=== PATIENT | male | born 1955 | race Caucasian/White ===

== ENCOUNTER 2020-08-21 08:00 | Outpatient (RCR) | payer MEDICARE, SELFPAY | END 2020-08-21 08:51 | disposition other institution (70) | LOC: HO.PT 08:00 | PROVIDERS: PCP Registered Nurse; Visit Provider Physician Assistant | DX: M25.551 Pain in right hip (principal) | CPT/HCPCS: 97110; 97112; 97140; 97161; 97530 ==

== ENCOUNTER 2023-04-20 12:52 | Emergency (ER) | payer MEDICARE, SELFPAY ==
[2023-04-20] VITALS (8 sets, daily range): BP systolic 79–128; BP diastolic 40–94; PULSE 63–122; RESP 16–18; TEMP 36.4–36.8; O2SAT 97–99; BMI 24.4
--- NOTE | ~2023-04-20 | XR_ITS ---
EXAMINATION: XR CHEST CLINICAL INFORMATION: Chest pain. COMPARISON: 11/02/2011 TECHNIQUE: 2 views of the chest were obtained. FINDINGS: The lungs are well expanded. No focal consolidation. No pleural effusion. Cardiac enlargement is unchanged. 5 cm surgical hyperdensity projects over the left cardiac shadow. Multiple old right-sided rib fractures. XR/XR chest 2V IMPRESSION: No acute abnormality.
--- NOTE | 2023-04-20 12:54 | ECG_ITS ---
Test Reason : afib Blood Pressure : / mmHG Vent. Rate : 113 BPM Atrial Rate : 113 BPM P-R Int : 136 ms QRS Dur : 124 ms QT Int : 350 ms P-R-T Axes : 108 -85 -28 degrees QTc Int : 480 ms Atrial tachycardia / Atrial flutter with 2:1 A-V conduction Right bundle branch block Left anterior fascicular block Bifascicular block Abnormal ECG When compared with ECG of 02-NOV-2011 15:05, Atrial tachycardia /atrial flutter has replaced NSR Vent. rate has increased BY 64 BPM (RBBB and left anterior fascicular block) is now Present Referred By: Estefany Fisher Electronically Signed By:MARLA ZARATE MD
--- NOTE | 2023-04-20 13:15 | ED.GENADULT ---
HPI - General Adult General Chief complaint: Arrhythmia/Palpitations Stated complaint: Afib Time Seen by Provider: 04/20/23 13:21 History of Present Illness HPI narrative: The patient is a 68-year-old male with a long history of paroxysmal atrial fibrillation. He is on rivaroxaban, metoprolol, dofetilide, and tamsulosin. Over the last 2 weeks the patient has felt increasingly exertionally dyspneic. Yesterday his smart watch told that his heart rate was in the 200s and he thought he was in atrial fibrillation. He contacted his aluminum siding mechanic in the [place] area and cannot be seen in the office until May. He came to the emergency room today because of the symptoms that he has had for the last 2 weeks. He has had some chest pain during this time but none now. This morning his heart rate has been closer to 110 he says. He drove himself to the hospital and did not feel he had any trouble driving himself to the hospital. He has not had any fever, sweats, chills and does not feel that he has been exposed to anybody with COVID or similar illnesses. He does not feel particularly ill just exertionally dyspneic. Related Data Allergies Allergy/AdvReac Type Severity Reaction Status Date / Time No Known Allergies Allergy Verified 04/20/23 13:19 Review of Systems Review of Systems: Yes all other systems are reviewed and are negative [facility] Social History Social History Smoked in Last 30 Days: No Advance Directives: No Advance Directives Information Provided: No Physical Exam ED Vital Signs: Vital Signs - 24 hr 04/20/23 13:14 04/20/23 13:19 04/20/23 14:00 Temperature 98.3 F Pulse Rate 122 H 111 H Respiratory Rate 18 18 Blood Pressure 122/77 79/40 L 118/94 H Pulse Oximetry 98 98 Oxygen Delivery Method Room Air Room Air 04/20/23 14:40 04/20/23 14:47 04/20/23 14:53 Temperature 97.6 F Pulse Rate 110 H 110 H 68 Respiratory Rate 16 18 16 Blood Pressure 124/87 119/83 99/65 Pulse Oximetry 98 99 98 Oxygen Delivery Method 04/20/23 15:26 04/20/23 17:00 Temperature Pulse Rate 63 67 Respiratory Rate 18 18 Blood Pressure 102/70 128/88 Pulse Oximetry 97 98 Oxygen Delivery Method Room Air Room Air BMI result Body Mass Index 24.4 Const Other: The patient is awake, alert, pleasant, cooperative. Does not appear in obvious distress. HENMT Other: Face symmetrical. Mucous membranes moist. Airway clear, Mallampati 1. Eyes Other: Pupils are round equal, conjunctivae clear Neck Other: No JVD, full range of motion. Resp Other: Lungs are clear bilaterally Cardio Other: The patient's heart rate is tachycardic. It is fairly regular. GI Other: Abdomen is soft and nontender. Skin Other: Skin is dry and unremarkable. Neuro Other: The patient is awake, alert, and appropriate. Moving all 4 extremities normally. Grossly neurologically intact. Extrem Other: No peripheral edema. At the the the the I I a Course Course Course Narrative: RME performed by Estefany Fisher PA-C. Patient is a 68 year old assigned male at presenting to the emergency department with chest pain. Patient has a significant cardiac history. Detailed physical exam and review of systems are deferred to the software configuration manager. Labs, imaging, and swabs ordered. Charge nurse made aware of patient. Medications Administered Discontinued Medications Generic Name Dose Route Start Last Admin Trade Name Freq PRN Reason Stop Dose Admin Propofol 60 mg 04/20/23 14:55 04/20/23 14:47 Propofol 200 Mg/20 Ml Vial IVPUSH 04/20/23 14:56 60 mg ONCE ONE Administration Medical Decision Making Medical Decision Making [facility] Narrative: The patient is a 68-year-old male with history of paroxysmal atrial fibrillation who reports that he is normally in sinus rhythm. He is on dofetilide as well as metoprolol. He has had 2 weeks of exertional dyspnea and a sense that he is probably in atrial fibrillation or flutter. The patient looks well. His heart rate was about 113 and I suspect this was probably a flutter with 3 or 4-1 block. With carotid maneuvers his ventricular rate reduced with obvious flutter waves apparent. The patient was eager to be cardioverted. He is on anticoagulation and took his rivaroxaban this morning he says. Therefore after obtaining consent for sedation and for the procedure of cardioversion we followed procedural sedation protocols and administered 60 mg of IV propofol. He was then cardioverted with 200 joules of synchronized energy into a sinus rhythm with a rate of about 60. Patient was monitored post procedure. The procedure itself was completely uneventful and without complications. On the monitor the patient had 1 very brief recurrence of his atrial flutter with a heart rate of around 113 but this corrected itself spontaneously. I spoke to the patient's aluminum siding mechanic, Dr. Weston Cortez of [facility] in [place]. Recommendation was for no change in medications at the moment but to follow up as an outpatient. He should return if worse. Lab Data 04/20/23 13:09 04/20/23 13:09 Labs: Lab Results 04/20/23 Range/Units 13:09 WBC 8.0 (4.8-10.8) X10*3/uL RBC 4.82 (4.60-5.80) X10*6/uL Hgb 15.4 (14.0-18.0) g/dl Hct 44.3 (42.0-52.0) % MCV 91.9 (80.0-98.0) fL MCH 32.0 (27.0-33.0) pg MCHC 34.8 (31.0-36.0) g/dl RDW 12.7 (11.0-16.0) % Plt Count 175 (160-400) X10*3/uL MPV 9.4 (9.4-12.4) fL Immature Gran % (Auto) 0.4 (0.0-0.4) % Neut % (Auto) 61.7 (45-73) % Lymph % (Auto) 28.9 (20-40) % [place] % (Auto) 7.1 (2-11) % Eos % (Auto) 1.4 (0-4) % Baso % (Auto) 0.5 (0-2) % Lymph # (Auto) 2.3 (1.2-4.9) X10*3/uL [place] # (Auto) 0.6 (0.1-1.2) X10*3/uL Eos # (Auto) 0.1 (0.0-0.4) X10*3/uL Baso # (Auto) 0.0 (0.0-0.2) X10*3/uL Abs Immat Gran (auto) 0.03 (0.00-0.03) X10*3/uL Absolute Neuts (auto) 5.0 (2.0-8.3) x10*3/uL Absolute Nucleated RBC 0.000 (0.0-0.012) X10*3/uL Nucleated RBC % (auto) 0.0 (0.0-0.2) /100WBC PT 23.3 H (11.1-13.3) SEC INR 1.9 H (0.9-1.1) APTT 46.3 H (26.0-36.4) SEC Sodium 134 L (135-145) mmol/L Potassium 4.6 (3.3-5.1) mmol/L Chloride 104 (96-108) mmol/L Carbon Dioxide 24 (22-29) mmol/L Anion Gap 11 L (12-20) BUN 12 (9-16) mg/dL Creatinine 0.77 (0.5-1.4) mg/dL Estim Creat Clear Calc 90.5 Estimated GFR > 60 Random Glucose 91 (60-115) mg/dL Calcium 9.5 (8.4-10.2) mg/dL Total Bilirubin 0.6 (0.0-1.0) mg/dL AST 28 (5-37) U/L ALT 37 (0-40) U/L Alkaline Phosphatase 78 (39-117) U/L Troponin I High Sens < 2.7 (<3.5-35.0) ng/L B-Natriuretic Peptide 106 H (<100) pg/mL Total Protein 7.1 (6.5-8.0) g/dL Albumin 4.3 (3.5-5.0) g/dL Discharge Plan Discharge Clinical Impression: Atrial flutter with rapid ventricular response Patient Disposition: Home, Self-Care Instructions: Atrial Flutter (ED) Additional Instructions: You had an electrical cardioversion today. Your received 200 joules of energy. For sedation you received 60 mg of propofol. We Please continue your current medications. Please stay in touch with your regular aluminum siding mechanic, Dr. Weston Cortez. Return to the emergency room if significantly worse. Interventions: ED Discharge Assessment Last Done: 04/20/23 17:20 Discharge Date/Time: 04/20/23 17:10 Cardioversion Procedure Note Cardioversion Date of Procedure: April 20, 2023 Ordering Provider: Cynthia Performing Provider: Cynthia Indication for Procedure: Atrial flutter with rapid ventricular response Pre-Op Diagnosis: Atrial flutter with rapid ventricular response Post-Op Diagnosis: sinus rhythm Performed with Transesophageal Echo: No History: Patient with a history of paroxysmal atrial flutter on rivaroxaban presents with 2 weeks of dyspnea on exertion. Consent: Verbal and Written consent was obtained from the patient before starting. The patient was made aware of the risks associated with sedation and potential for lack of success of cardioversion Procedure: After consent obtained, defib pads were attached and the patient was sedated using procedural sedation with 60 mg of propofol. Once adequate sedation achieved, we used synchronized cardioversion with 200 joules. After a single attempt a cardioversion the patient returned to a sinus rhythm. Complications: None Impression: Paroxysmal atrial flutter, status post cardioversion to sinus rhythm. Recommendations: Continue current medications and follow-up with aluminum siding mechanic.
[2023-04-20 13:23] LABS: INTERNATIONAL NORM RATIO 1.9 (0.9-1.1); Prothrombin Time 23.3 SEC (11.1-13.3)
[2023-04-20 13:25] LABS: Partial Thromboplastin Time 46.3 SEC (26.0-36.4)
[2023-04-20 13:28] LABS: Alanine Aminotransferase 37 U/L (0-40); Albumin Level 4.3 g/dL (3.5-5.0); Alkaline Phosphatase 78 U/L (39-117); Anion Gap 11 (12-20); Aspartate Amino Transferase 28 U/L (5-37); Bilirubin Total 0.6 mg/dL (0.0-1.0); Blood Urea Nitrogen 12 mg/dL (9-16); Calcium 9.5 mg/dL (8.4-10.2); Carbon Dioxide 24 mmol/L (22-29); Chloride 104 mmol/L (96-108); Creatinine Clr Calc Pharmacy 90.5; Estimated Glomerular Filt Rate > 60; Glucose Random 91 mg/dL (60-115); Potassium 4.6 mmol/L (3.3-5.1); Sodium 134 mmol/L (135-145); Total Protein 7.1 g/dL (6.5-8.0)
--- NOTE | 2023-04-20 14:52 | ECG_ITS ---
Test Reason : postcardioversion Blood Pressure : / mmHG Vent. Rate : 060 BPM Atrial Rate : 060 BPM P-R Int : 170 ms QRS Dur : 138 ms QT Int : 454 ms P-R-T Axes : 062 -86 -11 degrees QTc Int : 454 ms Normal sinus rhythm Right bundle branch block Left anterior fascicular block Bifascicular block Abnormal ECG When compared with ECG of 20-APR-2023 12:59, Normal sinus rhythm has replaced Atrial tachycardia /atrial flutter Vent. rate has decreased BY 53 BPM Referred By: Hermes Marie Electronically Signed By:MARLA ZARATE MD
== END 2023-04-20 17:10 | disposition home or self-care (01) ==
PROVIDERS: Physician Assistant Medical; Emergency Provider Emergency Medicine
DX: I48.92 Unspecified atrial flutter (principal); I49.9 Cardiac arrhythmia, unspecified; I48.0 Paroxysmal atrial fibrillation; R06.02 Shortness of breath; Z79.899 Other long term (current) drug therapy
CPT/HCPCS: 36415; 71046; 80053; 83880; 84484; 85025; 85610; 85730; 93005; 96374; 99284; 99285; J2704

== ENCOUNTER → 2023-04-20 12:54 | Outpatient (BNV) | payer MEDICARE, SELFPAY | PROVIDERS: Emergency Provider Emergency Medicine; Visit Provider Internal Medicine Cardiovascular Disease | DX: I48.91 Unspecified atrial fibrillation (principal) | CPT/HCPCS: 93010 ==

== ENCOUNTER 2024-03-01 08:39 | Emergency (ER) | payer MEDICARE, SELFPAY ==
--- NOTE | 2024-03-01 08:53 | ECG_ITS ---
Test Reason : afib Blood Pressure : / mmHG Vent. Rate : 108 BPM Atrial Rate : 227 BPM P-R Int : 000 ms QRS Dur : 130 ms QT Int : 380 ms P-R-T Axes : 000 269 -08 degrees QTc Int : 509 ms Atrial flutter with variable A-V block with premature ventricular or aberrantly conducted complexes Right bundle branch block Abnormal ECG When compared with ECG of 20-APR-2023 14:57, Atrial flutter has replaced Sinus rhythm Vent. rate has increased BY 48 BPM QT has lengthened Referred By: Generic ED Physician Electronically Signed By:MARLA ZARATE MD
[2024-03-01 09:00] VITALS: BP 113/82; PULSE 97; RESP 18; TEMP 36.3; O2SAT 96; BMI 25.1
[2024-03-01 09:38] LABS: MANUAL DIFF FLAG NO
[2024-03-01 09:49] LABS: Basophils Absolute Auto 0.1 X10*3/uL (0.0-0.2); Basophils Percent Auto 0.8 % (0-2); Eosinophils Absolute Auto 0.1 X10*3/uL (0.0-0.4); Eosinophils Percent Auto 1.2 % (0-4); Hematocrit 45.8 % (42.0-52.0); Hemoglobin 16.2 g/dl (14.0-18.0); Imm Gran Abs Auto 0.03 X10*3/uL (0.00-0.03); Imm Gran Pct Auto 0.4 % (0.0-0.4); Lymphocytes Absolute Auto 1.9 X10*3/uL (1.2-4.9); Lymphocytes Percent Auto 25.9 % (20-40); Mean Corpuscular HGB Conc 35.4 g/dl (31.0-36.0); Mean Corpuscular Hemoglobin 32.4 pg (27.0-33.0); Mean Corpuscular Volume 91.6 fL (80.0-98.0); Mean Platelet Volume 9.7 fL (9.4-12.4); Monocytes Absolute Auto 0.6 X10*3/uL (0.1-1.2); Neutrophils Absolute Auto 4.8 x10*3/uL (2.0-8.3); Neutrophils Percent Auto 63.7 % (45-73); Platelet Count 173 X10*3/uL (160-400); Red Cell Distribution Width 12.4 % (11.0-16.0); White Blood Count 7.5 X10*3/uL (4.8-10.8)
[2024-03-01 09:55] LABS: Alanine Aminotransferase 23 U/L (0-40); Albumin Level 4.3 g/dL (3.5-5.0); Alkaline Phosphatase 93 U/L (39-117); Anion Gap 12 (12-20); Aspartate Amino Transferase 28 U/L (5-37); Bilirubin Total 0.8 mg/dL (0.0-1.0); Blood Urea Nitrogen 10 mg/dL (9-16); Calcium 9.2 mg/dL (8.4-10.2); Carbon Dioxide 26 mmol/L (22-29); Chloride 105 mmol/L (96-108); Creatinine Clr Calc Pharmacy 96.8; Estimated Glomerular Filt Rate > 60; Glucose Random 100 mg/dL (60-115); Potassium 4.1 mmol/L (3.3-5.1); Sodium 139 mmol/L (135-145); Total Protein 7.3 g/dL (6.5-8.0)
[2024-03-01 10:07] LABS: Troponin-I High Sensitivity < 2.7 ng/L (<3.5-35.0)
--- NOTE | 2024-03-01 10:38 | ECG_ITS ---
Test Reason : Afib Blood Pressure : / mmHG Vent. Rate : 065 BPM Atrial Rate : 220 BPM P-R Int : 000 ms QRS Dur : 136 ms QT Int : 458 ms P-R-T Axes : 095 -89 -06 degrees QTc Int : 476 ms Atrial flutter with variable A-V block Right bundle branch block Left anterior fascicular block Bifascicular block Abnormal ECG When compared with ECG of 01-MAR-2024 08:48, Vent. rate has decreased BY 43 BPM Referred By: Natalie Morris Electronically Signed By:MARLA ZARATE MD
--- NOTE | 2024-03-01 10:54 | ED_ITS ---
HPI - Arrhythmia/Palpitations General Chief Complaint: Arrhythmia/Palpitations Stated Complaint: AFIB Time Seen by Provider: 03/01/24 10:38 Source: patient and old records reviewed Mode of arrival: ambulatory Limitations: no limitations History of Present Illness ED Provider: YARA HPI narrative: 69 yo male with PMH Of afib on xarelto, tikosen, bblocker here with c/o being in afib since yesterday and when he tries to get up his HR goes up - no swelling, CP/SOB. He is here to get cardioverted. No change in medications. No other complaints. NPO since last night MD complaint: atrial fibrillation Onset (ago): year(s) Duration: intermittent Severity: mild Context: occurred during rest and occurred during exertion Arrhythmia history: atrial fibrillation Associated symptoms: denies other symptoms Related Data Allergies Allergy/AdvReac Type Severity Reaction Status Date / Time No Known Allergies Allergy Verified 03/01/24 09:04 Review of Systems 2 Review of Systems: Constitutional : No Fever, No Chills, No Fatigue ENT/Mouth : No sore throat, No Rhinorrhea Eyes: No Eye Pain, No Swelling, No Redness Cardiovascular : No Chest Pain, No SOB, No Dyspnea on Exertion, pos palpitations Respiratory : No Cough, No Sputum Gastrointestinal : No Nausea, No Vomiting, No Diarrhea, No abdominal Pain Genitourinary : No Dysuria, No Urinary Frequency, No Hematuria, Musculoskeletal : No joint pain, No Myalgias, No Joint Swelling Skin : No Skin Lesions, No rash All other systems reviewed and are negative [facility] Past Medical History Attestation statement: The following information was validated with the patient. Source: old records reviewed Medical History (Updated 03/01/24 @ 13:41 by Natalie Morris DO) BPH (benign prostatic hyperplasia) Afib Social History Social History Advance Directives: No Advance Directives Information Provided: Yes Do you have a plan to hurt others: No Plan Physical Exam 2 Vital Signs: Vital Signs: Last Vital Signs Temp 97.3 F 03/01/24 09:00 Pulse 74 03/01/24 12:20 Resp 14 03/01/24 12:20 BP 126/74 03/01/24 12:20 Pulse Ox 97 03/01/24 12:20 O2 Del Method Room Air 03/01/24 12:20 BMI result Body Mass Index 25.1 Appearance: Alert. Oriented X3. No acute distress. Eyes: Pupils equal, round and reactive to light. ENT: Pharynx normal. Neck: Normal inspection. Neck supple. CVS: irregular heart rate and rhythm. Pulses normal. Respiratory: No respiratory distress. Breath sounds normal. Abdomen: Soft and non-tender. Skin: Skin warm and dry. Normal skin color. Normal skin turgor. Extremities: No lower extremity edema. No calf ttp Neuro: Oriented X 3. No motor deficit. No sensory deficit. Medical Decision Making Medical Decision Making [facility] Narrative: 69 yo male with PMH Of afib on xarelto, tikosen, bblocker here with c/o being in afib but no CP/SOB he can just feel his palpitations when he exerts his cards is at [facility] he is compliant with all medications. He is here asking for elective cardioversion. No signs of infection or volume overload Differential Diagnosis Differential Diagnoses: The differential diagnosis associated with the presentation includes afib chronic Admission/Observation Consideration of admission/observation: Escalation of care including admission/observation considered HR in 80-70s work up negative at this time will have to consult his fulling mill operator for cardioversion I explained we have too many critical patients in the ED and that his would be elective there is no signs of CHF or ischemia he is aware and agrees Lab Data [facility] Lab Attestation statement: I reviewed the patient's lab results. 03/01/24 09:25 03/01/24 09:25 Labs: Lab Results 03/01/24 Range/Units 09:25 WBC 7.5 (4.8-10.8) X10*3/uL RBC 5.00 (4.60-5.80) X10*6/uL Hgb 16.2 (14.0-18.0) g/dl Hct 45.8 (42.0-52.0) % MCV 91.6 (80.0-98.0) fL MCH 32.4 (27.0-33.0) pg MCHC 35.4 (31.0-36.0) g/dl RDW 12.4 (11.0-16.0) % Plt Count 173 (160-400) X10*3/uL MPV 9.7 (9.4-12.4) fL Immature Gran % (Auto) 0.4 (0.0-0.4) % Neut % (Auto) 63.7 (45-73) % Lymph % (Auto) 25.9 (20-40) % [place] % (Auto) 8.0 (2-11) % Eos % (Auto) 1.2 (0-4) % Baso % (Auto) 0.8 (0-2) % Lymph # (Auto) 1.9 (1.2-4.9) X10*3/uL [place] # (Auto) 0.6 (0.1-1.2) X10*3/uL Eos # (Auto) 0.1 (0.0-0.4) X10*3/uL Baso # (Auto) 0.1 (0.0-0.2) X10*3/uL Abs Immat Gran (auto) 0.03 (0.00-0.03) X10*3/uL Absolute Neuts (auto) 4.8 (2.0-8.3) x10*3/uL Absolute Nucleated RBC 0.000 (0.0-0.012) X10*3/uL Nucleated RBC % (auto) 0.0 (0.0-0.2) /100WBC Sodium 139 (135-145) mmol/L Potassium 4.1 (3.3-5.1) mmol/L Chloride 105 (96-108) mmol/L Carbon Dioxide 26 (22-29) mmol/L Anion Gap 12 (12-20) BUN 10 (9-16) mg/dL Creatinine 0.71 (0.5-1.4) mg/dL Estim Creat Clear Calc 96.8 Estimated GFR > 60 Random Glucose 100 (60-115) mg/dL Calcium 9.2 (8.4-10.2) mg/dL Magnesium 2.0 (1.6-2.6) mg/dL Total Bilirubin 0.8 (0.0-1.0) mg/dL AST 28 (5-37) U/L ALT 23 (0-40) U/L Alkaline Phosphatase 93 (39-117) U/L Troponin I High Sens < 2.7 (<3.5-35.0) ng/L Total Protein 7.3 (6.5-8.0) g/dL Albumin 4.3 (3.5-5.0) g/dL Independent Interpretation I performed an independent interpretation of an: EKG Interpretation: Rate: 108 Rhythm: aflutter Cutler: left Normal QRS complex. ST T wave : no VERNON, inverted t waves V1-V2 qTC: 509 prior studies: no acute ischemia The study has been interpreted contemporaneously by me. EKG #2 Rate: 65 Rhythm: aflutter Cutler: left RBBB ST T wave : inverted t waves V1 and III no VERNON qTC: 476 prior studies: no change The study has been interpreted contemporaneously by me. . External Record Review External record reviewed: Outpatient record Discharge Plan Discharge Clinical Impression: Atrial flutter Qualifiers: Atrial flutter type: unspecified Qualified Code(s): I48.92 - Unspecified atrial flutter Patient Disposition: Home, Self-Care Instructions: Atrial Flutter (ED) Additional Instructions: call your fulling mill operator for elective procedure return for any worsening symptoms or concerns monitor for swelling continue your medications Print Language: [place] Citizen
[2024-03-01 12:20] VITALS: BP 126/74; PULSE 74; RESP 14; O2SAT 97
[2024-03-01 13:59] VITALS: BP 126/74; PULSE 74; RESP 14; TEMP 36.8; O2SAT 97
== END 2024-03-01 14:00 | disposition home or self-care (01) ==
PROVIDERS: Emergency Provider Emergency Medicine; PCP Pediatrics
DX: I48.92 Unspecified atrial flutter (principal)
CPT/HCPCS: 36415; 80053; 83735; 84484; 85025; 93005; 99283; 99284

== ENCOUNTER → 2024-03-01 08:53 | Outpatient (BNV) | payer MEDICARE, SELFPAY | PROVIDERS: Emergency Provider Emergency Medicine; PCP Pediatrics; Visit Provider Internal Medicine Cardiovascular Disease | DX: I48.91 Unspecified atrial fibrillation (principal) | CPT/HCPCS: 93010 ==